=== PATIENT | female | born 1980 | race Caucasian/White ===

== ENCOUNTER 2017-10-16 22:06 | Emergency (ER) | payer OTHER ==
[2017-10-16 22:20] VITALS: O2SAT 100; BMI 30.2
--- NOTE | 2017-10-16 22:30 | ED PDOC ---
Arrival/HPI - General Historian: Patient <Edgar Spear - Last Filed: 10/16/17 23:46> <Dipesh Jackson - Last Filed: 10/17/17 00:14> - General Time Seen by Provider: 10/16/17 22:26 - History of Present Illness Narrative History of Present Illness (Text): 10/16/17 22:27 37 year old female, no significant pmh, nkda, complaining of burning urinary sensation and urinary frequency x 1 day. Burning urinary sensation, associated with frequency, no night sweat, no fever or chills, no flank or back pain, no vaginal bleeding or discharge, no rash, no other medical or psychological complaints (Edgar Spear) Past Medical History - Provider Review Nursing Documentation Reviewed: Yes - Pulmonary Hx Asthma: Yes - Musculoskeletal/Rheumatological Hx Falls: No - Genitourinary/Gynecological Other/Comment: miscarriage x1 - Psychiatric Hx Substance Use: No - Suicidal Assessment Feels Threatened In Home Enviroment: No <Edgar Spear - Last Filed: 10/16/17 23:46> Family/Social History - Physician Review Nursing Documentation Reviewed: Yes Family/Social History: Unknown Family HX Smoking Status: Never Smoked Hx Alcohol Use: No Hx Substance Use: No Hx Substance Use Treatment: No <Edgar Spear - Last Filed: 10/16/17 23:46> Allergies/Home Meds <Edgar Spear - Last Filed: 10/16/17 23:46> <Dipesh Jackson - Last Filed: 10/17/17 00:14> Allergies/Adverse Reactions: Allergies shellfish derived Allergy (Verified 02/17/16 11:56) Review of Systems - Review of Systems Constitutional: absent: Fatigue, Fevers Eyes: absent: Vision Changes ENT: absent: Hearing Changes Respiratory: absent: SOB, Cough, Sputum Cardiovascular: absent: Chest Pain Gastrointestinal: absent: Abdominal Pain, Nausea, Vomiting Genitourinary Female: Dysuria, Frequency. absent: Hematuria, Urine Output Changes, Vaginal Bleeding, Vaginal Discharge Skin: absent: Rash, Pruritis Neurological: absent: Headache, Dizziness <Edgar Spear - Last Filed: 10/16/17 23:46> Physical Exam Vital Signs Reviewed: Yes Temperature: Afebrile Blood Pressure: Normal Pulse: Regular Respiratory Rate: Normal Appearance: Positive for: Well-Appearing, Non-Toxic, Comfortable Pain Distress: None Mental Status: Positive for: Alert and Oriented X 3 - Systems Exam Head: Present: Atraumatic, Normocephalic Pupils: Present: PERRL Extroacular Muscles: Present: EOMI Conjunctiva: Present: Normal Mouth: Present: Moist Mucous Membranes Neck: Present: Normal Range of Motion, Trachea Midline. No: Meningeal Signs, MIDLINE TENDERNESS, Paraspinal Tenderness, Lymphadenopathy Respiratory/Chest: Present: Clear to Auscultation, Good Air Exchange. No: Respiratory Distress, Accessory Muscle Use Cardiovascular: Present: Regular Rate and Rhythm, Normal S1, S2. No: Murmurs Abdomen: Present: Tenderness (mild suprapubic tenderness), Normal Bowel Sounds. No: Distention, Peritoneal Signs, Rebound, Guarding Back: Present: Normal Inspection Upper Extremity: Present: Normal Inspection. No: Cyanosis, Edema Lower Extremity: Present: Normal Inspection. No: Edema Neurological: Present: GCS=15, Speech Normal, Motor Func Grossly Intact, Gait Normal, Memory Normal Skin: Present: Warm, Dry, Normal Color. No: Rashes Psychiatric: Present: Alert, Oriented x 3, Normal Insight, Normal Concentration <Edgar Spear - Last Filed: 10/16/17 23:46> Vital Signs Temp Pulse Resp BP Pulse Ox 10/16/17 22:20 98.2 F 82 18 122/82 100 Medical Decision Making <Edgar Spear - Last Filed: 10/16/17 23:46> <Dipesh Jackson - Last Filed: 10/17/17 00:14> ED Course and Treatment: 10/16/17 22:31 -ua 10/16/17 23:47 -Urinalysis show +UTI, rocephine and pyridium ordered. -Discharge home with macrobid, pyridium, stay hydrated, bed rest, follow up with your own pmd and urologist within 2 days, return to the ER for any new or worsening signs or symptoms. (Edgar Spear) - Lab Interpretations Lab Results: Lab Results 10/16/17 22:36: Urine Color Yellow, Urine Appearance Cloudy, Urine pH 6.0, Ur Specific [place] >= 1.030, Urine Protein 100 H, Urine Glucose (UA) Negative, Urine Ketones Negative, Urine Blood Large H, Urine Nitrate Positive H, Urine Bilirubin Negative, Urine Urobilinogen 0.2, Ur Leukocyte Esterase Small H, Urine RBC 5 - 10, Urine WBC Tntc, Ur Epithelial Cells 0 - 2, Urine Bacteria Many - Medication Orders Current Medication Orders: Discontinued Medications Ceftriaxone Sodium (Rocephin) 1 gm IM STAT STA PRN Reason: Protocol Stop: 10/16/17 23:47 Phenazopyridine HCl (Pyridium) 200 mg PO STAT STA Stop: 10/16/17 23:47 Last Admin: 10/17/17 00:10 Dose: 200 mg - PA / SENIOR PRODUCT DEVELOPMENT ENGINEER / Resident Statement SAMMIE has reviewed & agrees with the documentation as recorded. <Edgar Spear - Last Filed: 10/16/17 23:46> - PA / SENIOR PRODUCT DEVELOPMENT ENGINEER / Resident Statement SAMMIE has reviewed & agrees with the documentation as recorded. SAMMIE has examined the patient and agrees with the treatment plan. <Dipesh Jackson - Last Filed: 10/17/17 00:14> Disposition/Present on Arrival - Present on Arrival Any Indicators Present on Arrival: No History of DVT/PE: No History of Uncontrolled Diabetes: No Urinary Catheter: No History of Decub. Ulcer: No History Surgical Site Infection Following: None - Disposition Have Diagnosis and Disposition been Completed?: Yes Disposition Time: 23:48 Patient Plan: Discharge <Edgar Spear - Last Filed: 10/16/17 23:46> <Dipesh Jackson - Last Filed: 10/17/17 00:14> - Disposition Diagnosis: Cystitis, UTI (urinary tract infection) Disposition: HOME/ ROUTINE Patient Problems: Current Active Problems Problem Status Onset Cystitis Acute UTI (urinary tract infection) Acute Condition: GOOD Additional Instructions: -Discharge home with macrobid, pyridium, stay hydrated, bed rest, follow up with your own pmd and urologist within 2 days, return to the ER for any new or worsening signs or symptoms. Prescriptions: Nitrofurantoin Macrocrystals [Macrobid] 100 mg PO BID #14 cap Phenazopyridine HCl [Pyridium] 200 mg PO TID #6 tablet Referrals: Jess Bravo MD [Primary Care Provider] - Follow up with primary Eulalio Alvarez MD [Staff Provider] - Follow up with primary Forms: WORK NOTE
[2017-10-16 23:16] LABS: URINE BILIRUBIN NEGATIVE (NEGATIVE); URINE BLOOD LARGE (NEGATIVE); URINE GLUCOSE (UA) NEGATIVE (NEGATIVE); URINE KETONE NEGATIVE (NEGATIVE); URINE LEUKOCYTE ESTERASE SMALL Leu/uL (NEGATIVE); URINE PROTEIN 100 mg/dL (<30 mg/dL); URINE UROBILINOGEN 0.2 E.U./dL (<1 E.U./dL)
[2017-10-16 23:23] LABS: URINE APPEARANCE CLOUDY (CLEAR); URINE COLOR YELLOW (YELLOW)
[2017-10-16 23:31] LABS: URINE BACTERIA MANY (NEG); URINE EPITHELIAL CELLS 0 - 2 /hpf (0-5); URINE WBC TNTC /hpf (0-6)
[2017-10-16] MEDS ORDERED: cefTRIAXone (Rocephin) 1 gm Inj IM STA (23:46)
[2017-10-17] MEDS ORDERED: Lidocaine 1% Inj (20ml) ONE (00:17)
[2017-10-17 01:09] VITALS: BP 120/86; PULSE 70; RESP 17; TEMP 98.7
== END 2017-10-17 01:08 | disposition home or self-care (01) ==
LOC: ED 22:06
DX: N30.90 Cystitis, unspecified without hematuria (principal)
CPT/HCPCS: 81001; 87086; 87181; 96372; 99283; J0696